=== PATIENT | female | born 1975 | race Caucasian/White ===

== ENCOUNTER 2017-11-22 20:48 | Emergency (ER) | payer BC ==
[2017-11-22 20:58] VITALS: BP 135/84; PULSE 97; TEMP 98; BMI 19.6
[2017-11-22] MEDS ORDERED: CEFAZOLIN 1 GM/D5W 1 GM/50 ML BAG IVPB ONE (21:26)
[2017-11-22] MEDS ORDERED: LIDOCAINE HCL 2% (50ML VIAL) SQ ONE (21:27)
[2017-11-22] MEDS ORDERED: TETRACAINE/BENZOCAINE/BUTAMBEN 20 GM SPR TP ONE (21:27)
--- NOTE | 2017-11-22 21:28 | PDOC ---
History of Present Illness - General Chief Complaint: Abscess Boil Stated Complaint: PAIN Time Seen by Provider: 11/22/17 21:05 History Source: Patient Exam Limitations: No Limitations - History of Present Illness Initial Comments: 11/22/17 21:23 42 yr female c/o abscess to left labia for one week worse the past 2 days. Pt c/ o fever and chills today. no PMHX. Severity: Yes: moderate Location: reports: genitalia Past History - Past Medical History Allergies/Adverse Reactions: Allergies Allergy/AdvReac Type Severity Reaction Status Date / Time No Known Allergies Allergy Verified 11/22/17 20:58 Home Medications: Ambulatory Orders Aspirin/Acetaminophen/Caffeine [Excedrin Extra Strength Caplet] 1 each PO ASDIR 11/22/17 Cephalexin [Keflex] 250 mg PO QID #28 capsule 11/22/17 Ibuprofen 800 mg PO TID #30 tablet 11/22/17 - Suicide/Smoking/Psychosocial Hx Smoking History: Never smoked Have you smoked in the past 12 months: No Information on smoking cessation initiated: No Hx Alcohol Use: No Drug/Substance Use Hx: No Substance Use Type: Marijuana *Physical Exam - Vital Signs Last Vital Signs Temp Pulse Resp BP Pulse Ox 98.0 F 97 H 16 135/84 100 11/22/17 20:53 11/22/17 20:53 11/22/17 20:53 11/22/17 20:53 11/22/17 20:53 - Physical Exam General Appearance: Yes: Nourished, Appropriately Dressed HEENT: positive: EOMI, MARILYN Respiratory/Chest: positive: Lungs Clear, Normal Breath Sounds Female Pelvic Exam: positive: normal external exam, Bartholin mass (left side with induration extending towards perineum) Neurologic: positive: Fully Oriented, Alert, Normal Mood/Affect, Normal Response , Motor Strength 5/5 Procedures - Consent Consent obtained: Written (consent obtained at bedside by MD) Medical Decision Making - Medical Decision Making 11/22/17 22:00 cc: bartholin abscess paged who will see pt in ER and drain will give morphine, ancef 11/22/17 22:23 bartholin drained by tolerated procedure well wound culture sent *DC/Admit/Observation/Transfer Diagnosis at time of Disposition: Bartholin's gland abscess - Discharge Dispostion Disposition: HOME Condition at time of disposition: Good - Prescriptions Prescriptions: Cephalexin [Keflex] 250 mg PO QID #28 capsule Ibuprofen 800 mg PO TID #30 tablet - Referrals Referrals: Sharda Smith MD [Staff Physician] - - Patient Instructions Additional Instructions: take keflex as directed for 7 days ibuprofen 600-800mg every 8hrs for pain use the delilah rinse bottle after you use the toilet remove the packing tomorrow morning follow with your assistant producer next week - Post Discharge Activity
[2017-11-22] MEDS ORDERED: ceFAZolin SODIUM 1 GM VIAL ONE (21:31)
[2017-11-22] MEDS ORDERED: LIDOCAINE HCL 2% (20ML MULTI-DOSE VIAL) NR ONE (21:31)
[2017-11-22] MEDS ORDERED: morphine SULFATE 4 MG/ML VIAL IVPB ONE (21:58)
[2017-11-22] MEDS ORDERED: morphine SULFATE 4 MG/ML VIAL ONE (22:01)
[2017-11-22] MEDS ORDERED: IBUPROFEN 600 MG TABLET (FP) PO ONE ×2 (22:22→22:24)
--- NOTE | 2017-11-22 22:39 | CON.OBG ---
Consult Consult Specialty:: mental health consultant Referred by:: neeta ho NP Reason for Consultation:: bartholon abscess left - History of Present Illness Chief Complaint: c/o swelling on left side of vulva ,& severe pain, unable to walk History of Present Illness: h/o swelling for past 2 days ,in lower half of left labium majus gradually increased in size, painful felt feverish &chills ,unable to walk no h/o similar episode in past . no drainage yet - History Source History Provided By: Patient - Past Medical History Reproductive: Yes: Other (MS MH reg [id number] days x heavy bleeding for 3 days ) . No: Fibroids, PID ...LMP: 11/09/16 ...: No ...: 11 (6 sp ab 1st trimester) ...Para: 3 (1993 , 1999 primary c/section, ,2006 rc/sec btl ) Heme/Onc: No: Anemia Infectious Disease: Yes: Other (denies ) Psych: Yes: Other (denies mental health problems ) - Past Surgical History Past Surgical History: Yes: (1999, 2006 ), Tubal Ligation (2006 with c /s ) Additional Surgical History: 2006 Abdominiplasty - Alcohol/Substance Use Hx Alcohol Use: No History of Substance Use: reports: None - Smoking History Smoking history: Current every day smoker (1 or 2/day mainly at night) Have you smoked in the past 12 months: No Home Medications - Allergies Allergies/Adverse Reactions: Allergies Allergy/AdvReac Type Severity Reaction Status Date / Time No Known Allergies Allergy Verified 11/22/17 20:58 - Home Medications Home Medications: Ambulatory Orders Aspirin/Acetaminophen/Caffeine [Excedrin Extra Strength Caplet] 1 each PO ASDIR 11/22/17 Cephalexin [Keflex] 250 mg PO QID #28 capsule 11/22/17 Ibuprofen 800 mg PO TID #30 tablet 11/22/17 Physical Exam-BEAUTY COUNSELOR Vital Signs: Vital Signs Temperature 98.0 F 11/22/17 20:53 Pulse Rate 97 H 11/22/17 20:53 Respiratory Rate 16 11/22/17 20:53 Blood Pressure 135/84 11/22/17 20:53 O2 Sat by Pulse Oximetry (%) 100 11/22/17 20:53 Constitutional: Yes: Well Nourished, Severe Distress Gastrointestinal: Yes: WNL, Normal Bowel Sounds, Soft. No: Distention External Genitalia: No: Bartholin Cyst (left Bartholin abscess , eryhema, soft fluctating . left inguinal lymph nodes palpable right side no swelling , ni lymph nodes) Internal Exam Deferred: No Integumentary: Yes: Incision (abdominplasty scar), Tattoos Problem List - Problems (1) Bartholin's gland abscess Code(s): N75.1 - ABSCESS OF BARTHOLIN'S GLAND Assessment/Plan left bartholin gland abscess Plan I&D under l/a PROCEDURE consent taken pubis , perineum clean wwith betadine vagina packed cetacaine spray locally used , 15#blade incision made at nucocuateneous juction purulent material drained culture taken withforceps gland septa broken saline irrigation done 1/4 '' packing placed hemostasis noted preop iv morphine 4 mg was given by ER provider iv ancef 1 gmmivpb given pt tolerated procedure well pericare instructions given she will remove packing tomorrow in AM or it may fall down when she voids rx po augmentin 875 bid x 7 days po motrin orn . she will follow at [address] [place] [address] in 1 week
== END 2017-11-22 22:52 | disposition home or self-care (01) ==
LOC: JERFT 20:48
PROC: 0U9L0ZZ Drainage of Vestibular Gland, Open Approach (ICD-10-PCS; principal; 2017-11-22)
PROC: 3E03329 Introduction of Other Anti-infective into Peripheral Vein, Percutaneous Approach (ICD-10-PCS; 2017-11-22)
PROC: 3E033NZ Introduction of Analgesics, Hypnotics, Sedatives into Peripheral Vein, Percutaneous Approach (ICD-10-PCS; 2017-11-22)
DX: N75.1 Abscess of Bartholin's gland (principal)
CPT/HCPCS: 87070; 87205; 99281-25

== ENCOUNTER 2018-03-04 15:44 | Emergency (ER) | payer BC ==
--- NOTE | 2018-03-04 15:52 | PDOC ---
Rapid Medical Evaluation Time Seen by Provider: 03/04/18 15:47 Medical Evaluation: Allergies Allergy/AdvReac Type Severity Reaction Status Date / Time No Known Allergies Allergy Verified 11/22/17 20:58 03/04/18 15:48 Pt c/o:Pt with generalized headache x 1 week. tylenol alleviated discomfort. States photosensitivity, no neck pain, no fever, states has " bumpto left upper neck and right occipital x 1 month, no hx migraine, pt on brief exam: non tender left submental node. No dental erosion, vss pt ordered for: head ct not ordered (pt had head ct 2 years ago here for nausea , headache, and fever), had gavin tubal ligation 12 years ago pt to proceed to the ED Discharge Disposition - Diagnosis Headache - Referrals - Patient Instructions - Post Discharge Activity
[2018-03-04 15:53] VITALS: BP 126/79; PULSE 94; TEMP 97.4; BMI 20.5
[2018-03-04] MEDS ORDERED: ACETAMINOPHEN 500 MG TABLET (FP) PO ONE (17:08)
[2018-03-04] MEDS ORDERED: ACETAMINOPHEN 500 MG TABLET (FP) ONE (17:11)
--- NOTE | 2018-03-04 20:09 | PDOC ---
History of Present Illness - General Chief Complaint: Headache Stated Complaint: HEADACHE Time Seen by Provider: 03/04/18 15:47 - History of Present Illness Initial Comments: 03/04/18 20:07 42-year-old female without comorbidities presents for evaluation of headache 1 week unrelieved by home Motrin. She has photophobia and no nausea vomiting or visual changes. Past History - Past Medical History Allergies/Adverse Reactions: Allergies Allergy/AdvReac Type Severity Reaction Status Date / Time No Known Allergies Allergy Verified 11/22/17 20:58 Home Medications: Ambulatory Orders NK [No Known Home Medication] 03/04/18 Cancer: No Cardiac Disorders: No CVA: No COPD: No CHF: No DVT: No Dementia: No - Suicide/Smoking/Psychosocial Hx Smoking History: Current some day smoker Have you smoked in the past 12 months: No Number of Cigarettes Smoked Daily: 5 Information on smoking cessation initiated: Yes 'Breaking Loose' booklet given: 03/04/18 Hx Alcohol Use: Yes (social) Drug/Substance Use Hx: No Substance Use Type: Alcohol Review of Systems - Review of Systems Neurological: Yes: See HPI, Headache All Other Systems: Reviewed and Negative *Physical Exam - Vital Signs Last Vital Signs Temp Pulse Resp BP Pulse Ox 97.4 F L 94 H 20 126/79 100 03/04/18 15:47 03/04/18 15:47 03/04/18 15:47 03/04/18 15:47 03/04/18 15:47 - Physical Exam Comments: 03/04/18 20:07 HEAD: NC/AT EYES: Conjuntiva clear PERRL EOMI Ears: Canals and TM's normal NOSE: No d/c THROAT: Moist mucous membrances, oral pharanx clear, uvula midline NECK: Supple without adenopathy CARDIAC: S1 S2 LUNGS: CTA Full and Equal breath sounds ABDOMEN: Soft NT ND MS: Full ROM in all joints without edema NEUROLOGIC: No gross sensory or motor deficits, NVID SKIN: Normal color and temperature no lesions or rashes ED Treatment Course - ADDITIONAL ORDERS Additional order review: Laboratory Results 03/04/18 16:40 Urine HCG, Qual Negative - RADIOLOGY Radiology Studies Ordered: Category Date Time Status HEAD CT WITHOUT CONTRAST [CT] Stat CT Scan 03/04/18 17:08 Completed - Medications Given in the ED: ED Medications Discontinued Medications Generic Name Dose Route Start Last Admin Trade Name Freq PRN Reason Stop Dose Admin Acetaminophen 1,000 mg 03/04/18 17:08 03/04/18 17:11 Tylenol - PO 03/04/18 17:09 1,000 mg ONCE ONE Administration Medical Decision Making - Medical Decision Making 03/04/18 20:08 CAT scan results were negative patient relieved with a gram of Tylenol follow- up with neurology for further evaluation and treatment of headache. *DC/Admit/Observation/Transfer Diagnosis at time of Disposition: Headache - Discharge Dispostion Disposition: HOME Condition at time of disposition: Stable Decision to Admit order: No - Referrals Referrals: Yunier Bell MD [Staff Physician] - - Patient Instructions Printed Discharge Instructions: DI for Headache Additional Instructions: Please take Tylenol and Motrin as directed for pain. Return to the emergency room should symptoms worsen or go unresolved. Please follow up with neurology and once 2 days for further evaluation and treatment options of headache. - Post Discharge Activity
== END 2018-03-04 20:23 | disposition home or self-care (01) ==
LOC: JER 15:44 → JERFT 15:44
DX: R51 Headache (principal)
CPT/HCPCS: 70450-TC; 84703; 99281-25

== ENCOUNTER 2020-08-17 04:15 | Day surgery (SDC) | payer BC ==
[2020-08-15 12:06] VITALS: BMI 21.1
[2020-08-17 10:16] VITALS: TEMP 97.1
[2020-08-17 11:40] LABS: BASO % 0.8 % (0-2.0); EOS % 5.1 % (0-4.5); HEMATOCRIT 37.7 % (32.4-45.2); HEMOGLOBIN 12.7 GM/dL (10.7-15.3); LYMPH % 21.4 % (8-40); MCH 33.8 pg (25.7-33.7); MCHC 33.8 g/dl (32.0-36.0); MEAN PLT VOLUME 9.1 fl (7.5-11.1); MONO % 5.7 % (3.8-10.2); PLATELET COUNT 201 K/MM3 (134-434); RBC 3.77 M/mm3 (3.60-5.2); WHITE BLOOD COUNT 7.8 K/mm3 (4.0-10.0)
[2020-08-17 12:06] VITALS: BP 135/76; PULSE 73
[2020-08-17 12:13] LABS: POTASSIUM 4.6 mmol/L (3.5-5.1)
[2020-08-17 12:14] LABS: BLOOD UREA NITROGEN 6.2 mg/dL (7-18); CALCIUM 9.3 mg/dL (8.5-10.1)
[2020-08-17 12:18] LABS: CREATININE 0.7 mg/dL (0.55-1.3)
[2020-08-17 12:19] LABS: BILIRUBIN,TOTAL 0.5 mg/dL (0.2-1); TOT PROT 7.1 g/dl (6.4-8.2)
== END 2020-08-17 12:27 | disposition home or self-care (01) ==
LOC: JASU-ENDO 04:15
PROVIDERS: ATTEND Internal Medicine Gastroenterology
PROC: 0DBH8ZX Excision of Cecum, Via Natural or Artificial Opening Endoscopic, Diagnostic (ICD-10-PCS; 2020-08-17)
PROC: 0DBL8ZX Excision of Transverse Colon, Via Natural or Artificial Opening Endoscopic, Diagnostic (ICD-10-PCS; 2020-08-17)
PROC: 0DBC8ZX Excision of Ileocecal Valve, Via Natural or Artificial Opening Endoscopic, Diagnostic (ICD-10-PCS; 2020-08-17)
PROC: 0DBM8ZX Excision of Descending Colon, Via Natural or Artificial Opening Endoscopic, Diagnostic (ICD-10-PCS; 2020-08-17)
PROC: 3E0H8GC Introduction of Other Therapeutic Substance into Lower GI, Via Natural or Artificial Opening Endoscopic (ICD-10-PCS; 2020-08-17)
PROC: 0DJD8ZZ Inspection of Lower Intestinal Tract, Via Natural or Artificial Opening Endoscopic (ICD-10-PCS; principal; 2020-08-17 09:00)
DX: K63.3 Ulcer of intestine (principal); K52.9 Noninfective gastroenteritis and colitis, unspecified; K62.1 Rectal polyp; K63.89 Other specified diseases of intestine; K64.8 Other hemorrhoids; K62.5 Hemorrhage of anus and rectum
CPT/HCPCS: 36415; 80053; 81025; 85025; 86780; 88305-TC

== ENCOUNTER 2021-10-28 16:54 | Emergency (ER) | payer BC ==
[2021-10-28 17:16] VITALS: BP 100/67; PULSE 78; TEMP 98; BMI 18.5
[2021-10-28] MEDS ORDERED: LIDOCAINE HCL 1%, 10 MG/ML (50 mL VIAL) SQ ONE (18:26)
[2021-10-28] MEDS ORDERED: LIDOCAINE HCL 1%, 10 MG/ML (20ML VIAL) ONE (18:27)
[2021-10-28] MEDS ORDERED: DOXYCYCLINE HYCLATE 100 MG CAPSULE PO ONE ×2 (20:27→20:35)
== END 2021-10-28 20:59 | disposition home or self-care (01) ==
LOC: JER 16:54 → JERFT 16:54
PROC: 0U9MXZZ Drainage of Vulva, External Approach (ICD-10-PCS; principal; 2021-10-28)
PROC: 3E0234Z Introduction of Serum, Toxoid and Vaccine into Muscle, Percutaneous Approach (ICD-10-PCS; 2021-10-28)
DX: N75.1 Abscess of Bartholin's gland (principal)
CPT/HCPCS: 84703; 87070; 87076; 87205; 99283-25